=== PATIENT | male | born 2000 | race American Indian/Alaskan Native ===

== ENCOUNTER 2018-10-25 16:44 | Emergency (ER) | payer OTHER ==
[2018-10-25 16:48] VITALS: BMI 26.3
[2018-10-25 16:50] VITALS: BP 110/54; PULSE 63; RESP 18; TEMP 98.7; O2SAT 99
[2018-10-25] MEDS ORDERED: Naproxen 500 MG TAB PO ONE (16:59)
--- NOTE | 2018-10-25 17:11 | ED PDOC ---
Lower Extremity Pain/Injury Time Seen by Provider: 10/25/18 16:55 Chief Complaint (Nursing): Lower Extremity Problem/Injury Chief Complaint (Provider): Lower Extremity Problem/Injury History Per: Patient History/Exam Limitations: no limitations Onset/Duration Of Symptoms: Days Current Symptoms Are (Timing): Still Present Additional Complaint(s): 18 y/o male with no significant PMHx presents to the ED for evaluation of right ankle pain. Patient states he jumped in the air last night and landed on his right foot twisting his right ankle. Patient reports pain is localized to the right foot. Patient notes of waking up this morning with a lot of swelling to the right foot. Patient last took Tylenol for pain at 1 PM. Otherwise, patient denies numbness or tingling. PMD: no provider Past Medical History Reviewed: Historical Data, Nursing Documentation, Vital Signs Vital Signs: Last Vital Signs Temp 98.7 F 10/25/18 16:48 Pulse 63 10/25/18 16:48 Resp 18 10/25/18 16:48 BP 110/54 L 10/25/18 16:48 Pulse Ox 99 10/25/18 16:48 - Medical History PMH: No Chronic Diseases - Surgical History Surgical History: No Surg Hx - Family History Family History: States: Unknown Family Hx - Allergies Allergies/Adverse Reactions: Allergies Allergy/AdvReac Type Severity Reaction Status Date / Time No Known Allergies Allergy Verified 10/25/18 16:47 Review of Systems ROS Statement: Except As Marked, All Systems Reviewed And Found Negative Musculoskeletal: Positive for: Foot Pain (right) Neurological: Negative for: Numbness (or tingling) Physical Exam - Reviewed Nursing Documentation Reviewed: Yes Vital Signs Reviewed: Yes - Physical Exam Appears: Positive for: No Acute Distress Pulses-Dorsalis Pedis (L): 2+ Pulses-Dorsalis Pedis (R): 2+ Extremity: Positive for: Tenderness (right foot with moderate tenderness on the dorsal surface. no ankle tenderness), Swelling (right foot with moderate swelling on the dorsal surface. no ankle swelling). Negative for: Other (break in skin integrity) - ECG O2 Sat by Pulse Oximetry: 99 (RA) Pulse Ox Interpretation: Normal Medical Decision Making Medical Decision Making: Time: 1658 Plan: -- Naproxen 500 mg PO -- Foot Right XR Time: 1816 PROCEDURE: Right Foot Radiographs. HISTORY: trauma COMPARISON: None. TECHNIQUE: 3 views obtained. FINDINGS: BONES: Comminuted fracture of the 5th metatarsal with extension to the metatarsophalangeal joint. JOINTS: Normal. SOFT TISSUES: Lateral foot soft tissue swelling. OTHER FINDINGS: None. IMPRESSION: New dated intra-articular fracture of the proximal 5th metatarsal. Time: 1954 -- Patient evaluated by Dr. Dennis, podiatry resident. Discussed case and reviewed XRs with Dr. Cotter and will have arrangements made for outpatient follow up. Dr. Dennis additionally performed a splint on the patient. Scribe Attestation: Documented by Yasmany Rush, acting as a scribe Reggie Leonardo PA-C. Provider Scribe Attestation: All medical record entries made by the Scribe were at my direction and personally dictated by me. I have reviewed the chart and agree that the record accurately reflects my personal performance of the history, physical exam, medical decision making, and the department course for this patient. I have also personally directed, reviewed, and agree with the discharge instructions and disposition. Disposition - Clinical Impression Clinical Impression: Foot fracture - Patient ED Disposition Is Patient to be Admitted: No - Disposition Referrals: Prashanth Cotter MD [Staff Provider] - Disposition: Routine/Home Disposition Time: 19:43 Condition: STABLE Additional Instructions: FOLLOW UP WITH DR. COTTER FOR FURTHER EVALUATION RETURN TO ED IMMEDIATELY IF SYMPTOMS WORSEN NABILA MORALES, thank you for letting us take care of you today. Your provider was Ramon Lombardi MD and you were treated for RT FOOT PAIN. The emergency medical care you received today was directed at your acute symptoms. If you were prescribed any medication, please fill it and take as directed. It may take several days for your symptoms to resolve. Return to the Emergency Department if your symptoms worsen, do not improve, or if you have any other problems. Please contact your doctor or call one of the physicians/clinics you have been referred to that are listed on the Patient Visit Information form that is included in your discharge packet. Bring any paperwork you were given at discharge with you along with any medications you are taking to your follow up visit. Our treatment cannot replace ongoing medical care by a primary care provider outside of the emergency department. Thank you for allowing the [facility] team to be part of your care today. If you had an X-Ray or CT scan: A Radiologist will review the ED reading if any change in treatment is needed we will contact you. If you had a blood, urine, or wound culture: It will take several days for the results, if any change in treatment is needed we will contact you. If you had an STI test: It will take 48 hours for the results. Please call after 1 week if you have not heard back. Instructions: Foot Fracture (DC) Forms: [employer] (American) Print Language: MACEDONIAN
--- NOTE | 2018-10-25 18:18 | CP.PCM.CON ---
History of Present Illness - History of Present Illness History of Present Illness: Podiatry consult note for Dr. Cotter, 18 y/o male with no significant PMHx presents to the ED for evaluation of right ankle pain. Patient states he jumped in the air last night and landed on his right foot twisting his right ankle. Patient reports pain is localized to the right foot. Patient notes of waking up this morning with a lot of swelling to the right foot. Patient last took Tylenol for pain at 1 PM. Otherwise, patient denies numbness or tingling. Pmhx: none Pshx: none Allergies: none Social history: denies smoking, denies drinking alcohol Past Patient History - Past Social History Smoking Status: Never Smoked - PSYCHIATRIC Hx Substance Use: No Meds Allergies/Adverse Reactions: Allergies Allergy/AdvReac Type Severity Reaction Status Date / Time No Known Allergies Allergy Verified 10/25/18 16:47 Physical Exam - Constitutional Appears: Well, Non-toxic, No Acute Distress - Head Exam Head Exam: ATRAUMATIC, NORMOCEPHALIC - Eye Exam Eye Exam: Normal appearance - ENT Exam ENT Exam: Mucous Membranes Moist - Respiratory Exam Respiratory Exam: NORMAL BREATHING PATTERN - Cardiovascular Exam Cardiovascular Exam: REGULAR RHYTHM - Extremities Exam Additional comments: Vascular: DP/PT 2/4, CFT <3 secs x 5, TG warm to cool, nonpitting edema noted on the lateral aspect of the foot. derm: no open lesions, no clinical signs of infection, no ecchymosis ortho: pain on palpation to the base of the fifth metatarsal, minimal pain on palpation to the distal aspect of the lateral malleolus, pain with eversion, no pain with dorsiflexion or plantarflexion of the foot neuro: protective sensation intact via ipswich 10/15 Results - Vital Signs Recent Vital Signs: Last Vital Signs Temp 98.7 F 10/25/18 16:48 Pulse 63 10/25/18 16:48 Resp 18 10/25/18 16:48 BP 110/54 L 10/25/18 16:48 Pulse Ox 99 10/25/18 17:13 Assessment & Plan - Assessment and Plan (Free Text) Assessment: 18 yo male seen and evaluated in the ED for comminuted right fifth metatarsal base fracture. Plan: Patient seen and evaluated Chart, labs and vitals reviewed X-rays reviewed- comminuted fifth metatarsal base fracture noted Wellpadded posterior splint applied crutches dispensed; patient to be crutch trained Patient advised to remain NWB to RLE Patient showed verbal understanding Patient educated on the RICE protocol patient to follow up with Dr Cyndee jesus for pain prn
--- NOTE | 2018-10-25 18:21 | RAD ---
Date of service: 10/25/2018 PROCEDURE: Right Foot Radiographs. HISTORY: trauma COMPARISON: None. TECHNIQUE: 3 views obtained. FINDINGS: BONES: Comminuted fracture of the 5th metatarsal with extension to the metatarsophalangeal joint. JOINTS: Normal. SOFT TISSUES: Lateral foot soft tissue swelling. OTHER FINDINGS: None. IMPRESSION: New dated intra-articular fracture of the proximal 5th metatarsal.
== END 2018-10-25 20:14 | disposition home or self-care (01) ==
LOC: H.ER 16:44
DX: S92.901A Unspecified fracture of right foot, initial encounter for closed fracture (principal); X50.9XXA Other and unspecified overexertion or strenuous movements or postures, initial encounter; Y92.89 Other specified places as the place of occurrence of the external cause